=== PATIENT | male | born 1955 | race Caucasian/White ===

== ENCOUNTER 2022-12-29 00:34 | Emergency (ER) | payer OTHER ==
[~2022-12-29] VITALS: Ht 170.2 cm; Wt 83.9 kg
[2022-12-29] MEDS ORDERED: INSU100V7 SQ (00:43)
[2022-12-29] MEDS ORDERED: METF-494 PO (00:43)
--- NOTE | 2022-12-29 00:43 | NUR ---
Per patient, takes 3 HTN medications, a blood thinner, insulin, metformin, and glipizide. Pt unable to remember names and dosages of medications. Further follow up needed.
[2022-12-29] MEDS ORDERED: GLIP5TAB13 PO (00:44)
[2022-12-29] MEDS ORDERED: IPRATROPIUM BROMIDE 0.5 MG/2.5 ML NEBU NEB ONE (00:45)
[2022-12-29] MEDS ORDERED: ALBUTEROL SULFATE 2.5 MG/3 ML NEBU NEB ONE (00:45)
[2022-12-29] MEDS ORDERED: ALBUTEROL SULFATE 2.5 MG/3 ML NEBU ONE (00:48)
[2022-12-29] MEDS ORDERED: IPRATROPIUM BROMIDE 0.5 MG/2.5 ML NEBU ONE (00:49)
--- NOTE | 2022-12-29 01:08 | NUR ---
Both covid swab and influenza swab completed.
--- NOTE | 2022-12-29 01:09 | NUR ---
Pt refuses to use urinal despite listing concerns of his shortness of breath and elevated heart rate. Pt yelling and irritable. Escorted pt to restroom. Pt demanded to use a regular restroom in order to urinate.
[2022-12-29 01:10] LABS: MEAN CORPUSCULAR HEMOGLOBIN 27.4 uug (23.8-33.4); MEAN CORPUSCULAR VOLUME 83.4 fL (73.0-96.2); PLATELET COUNT (AUTO) 215 K/uL (152-348)
--- NOTE | 2022-12-29 01:19 | NUR ---
Pt stressed to me that he has no desire to stay in the hospital and desires to leave as soon as possible. Pt states,"I am not short of breath." However, pt is tachypneic, heart rate 120's to 130'sbpm. 94% on RA at this time.
--- NOTE | 2022-12-29 01:20 | NUR ---
o2 sat 89% on RA. Addendum: 12/29/22 at 0124 by [email or web address] o2 sat 89% on RA. CANDIDO HUGGINS present in room at this time. Attempting to convince patient to allow for treatment.
[2022-12-29] MEDS ORDERED: LORAZEPAM 0.5 MG TABLET PO ONE (01:30)
[2022-12-29 01:35] LABS: ALANINE AMINOTRANSFERASE 20 U/L (16-63); ALKALINE PHOSPHATASE 101 U/L (50-136); ASPARTATE AMINOTRANSFERASE 25 U/L (15-37); BILIRUBIN,TOTAL 0.3 mg/dL (0.2-1.0); CARBON DIOXIDE 22 mmol/L (21-32); CHLORIDE 101 mmol/L (98-107); CREATININE 2.2 mg/dL (0.6-1.3); POTASSIUM 4.7 mmol/L (3.5-5.1); TOTAL PROTEIN, SERUM 7.3 g/dL (6.4-8.2); UREA NITROGEN, BLOOD 43 mg/dL (7-18)
[2022-12-29 01:37] LABS: GLUCOSE 350 mg/dL (74-106)
[2022-12-29 01:54] LABS: BILIRUBIN,DIRECT < 0.1 mg/dL (0.0-0.2)
[2022-12-29] MEDS ORDERED: CEFTRIAXONE 1 G in IV DEXTROSE 5% 50 ML IV ONE (02:00)
[2022-12-29] MEDS ORDERED: FUROSEMIDE 20 MG/2 ML VIAL IV ONE (02:00)
[2022-12-29] MEDS ORDERED: AZITHROMYCIN IV 500 MG in IV DEXTROSE 5% 250 ML IV ONE (02:00)
[2022-12-29] MEDS ORDERED: CEFTRIAXONE /D5W 50ML IVPB **ER PYXIS IV ONE (03:10)
[2022-12-29] MEDS ORDERED: FUROSEMIDE 20 MG/2 ML VIAL ONE (03:11)
[2022-12-29] MEDS ORDERED: AZITHROMYCIN 500MG/ D5W 250ML IVPB **ER PYXIS ONLY IV ONE (03:11)
[2022-12-29] MEDS ORDERED: LORAZEPAM 0.5 MG TABLET ONE (03:11)
--- NOTE | 2022-12-29 03:25 | NUR ---
Pt has expressed multiple times that he desires to leave and be discharged. ER provider has discussed in details the importance of staying and is still communicating with patient at this time. NO ordered medication has been given due to delay on patient's behalf. Pt mentioned the desire to go to [place] about 6 minutes ago and now is stating he wants to go home.
--- NOTE | 2022-12-29 03:40 | NUR ---
Patient does not wish to proceed with medical care recommended by Dr. Bucio. Patient given information related to possible complications, up to and including , which could occur as a result of leaving the hospital at this time. Patient verbalizes understanding of risks involved due to leaving against medical advice. Patient refused to sign AMA form. 2 nurse signature on document. Pt given taxi voucher. Awaiting sheepskin pickler in waiting room.
--- NOTE | 2022-12-29 04:30 | NUR ---
Pt does not want to wait any longer for taxi service. Notified by security that patient left ER. IV access d/c'd earlier with catheter tip intact.
== END 2022-12-29 03:40 | disposition left against medical advice (07) ==
LOC: ER 00:34
DX: A41.9 Sepsis, unspecified organism (principal); J96.01 Acute respiratory failure with hypoxia; N17.9 Acute kidney failure, unspecified; I21.4 Non-ST elevation (NSTEMI) myocardial infarction; E87.70 Fluid overload, unspecified; E11.65 Type 2 diabetes mellitus with hyperglycemia; I69.351 Hemiplegia and hemiparesis following cerebral infarction affecting right dominant side; Z79.4 Long term (current) use of insulin; Z79.84 Long term (current) use of oral hypoglycemic drugs; Z53.29 Procedure and treatment not carried out because of patient's decision for other reasons; Z20.822 Contact with and (suspected) exposure to COVID-19
CPT/HCPCS: 36415; 71045; 83605; 84484; 85025; 87040; 93005; A4663; J0456; J0696; J1940; J3590